=== PATIENT | female | born 1930 | race Asian ===

== ENCOUNTER 2017-04-19 21:09 | Emergency (ER) | payer MEDICARE, MEDICAID ==
[2017-04-19 22:11] LABS: PATH.CAST-FLAG NOT PRESENT; SPERM-FLAG NOT PRESENT; SRC-FLAG NOT PRESENT; XTAL-FLAG NOT PRESENT; YLC-FLAG NOT PRESENT
[2017-04-19 22:29] LABS: HEMATOCRIT 33.5 % (34.6-47.8); HEMOGLOBIN 11.2 g/dL (11.7-16.4); WHITE BLOOD COUNT 4.9 x10^3/uL (3.4-10)
[2017-04-19 22:35] LABS: BLOOD UREA NITROGEN 11 mg/dL (7-18)
[2017-04-19 22:42] LABS: ASPARTATE AMINO TRANSFERASE 15 U/L (15-37)
[2017-04-19 22:43] LABS: IS PT STATUS REG ER OR PRE ER? YES
[2017-04-19] MEDS ORDERED: HYDROCHLOROTHIAZIDE 25 MG TABLET PO ONE (23:30)
[2017-04-20 00:25] VITALS: BP 170/79
== END 2017-04-20 00:28 | disposition home or self-care (01) ==
LOC: ED 23:59
DX: I10 Essential (primary) hypertension (principal); Z88.8 Allergy status to other drugs, medicaments and biological substances
CPT/HCPCS: 36415; 71010; 80053; 81001; 84436; 84443; 84484; 85025; 87086; 93005; 99285